=== PATIENT | male | born 1955 | race Caucasian/White ===

== ENCOUNTER 2017-11-06 11:56 | Emergency (ER) | payer MEDICAID ==
[~2017-11-06] VITALS: Ht 182.9 cm; Wt 85.7 kg
[2017-11-06 12:01] VITALS: BP 146/91
== END 2017-11-06 12:32 | disposition home or self-care (01) ==
LOC: ED 12:00
DX: J30.2 Other seasonal allergic rhinitis (principal)
CPT/HCPCS: 99283